=== PATIENT | female | born 1980 | race Caucasian/White ===

== ENCOUNTER 2017-03-15 19:02 | Emergency (ER) | payer SELFPAY ==
[~2017-03-15] VITALS: Ht 162.6 cm; Wt 49.9 kg
[~2017-03-15 19:02] MED LIST: ACET-704 PO; PRED-220 PO; [UNRECOGNIZED DRUG - OTHER]
[2017-03-15 19:12] VITALS: BP 130/82
--- NOTE | 2017-03-15 19:28 | PHYS DOC ---
General Chief Complaint: HAND PROBLEM Stated Complaint: RT HAND SWOLLEN X 2 DAYS Time Seen by MD: 19:23 Source: patient Problems: History of Present Illness Initial Comments Patient here for right hand swelling. Patient states that since yesterday, she noted some swelling of the right hand, mostly over the palmar aspect of the index finger MCP joint area. There is no history of injury or trauma to the area. She's not had any insect bite. She's had increasing swelling and discomfort in the hand focused on that area, and today really can't extend her if right index finger without significant discomfort. She has no numbness or tingling the digit. As noted, there is no history of injury or trauma. She noted no red streaks going up the arm. She has no fever chills, URI symptoms, cough, nausea vomiting, or other systemic symptoms noted. Other than present for care today and take some [id number] pain medicine there's been nothing done for this at home. She notes that he can motion of the right index finger make the pain worse. Patient's past medical history is otherwise unremarkable. She smokes a half-pack of cigarettes daily. She is nonuser of ethanol. Allergies: Coded Allergies: amoxicillin (Verified Allergy, Severe, Hives, 08/24/15) Uncoded Allergies: BEER (Allergy, Severe, N/V, 08/24/15) STATES "IT IS THE HOPS IN THE BEER THAT MAKES ME SICK." Past Medical History Medical History: no pertinent history Surgical History: noncontributory Social History Smoker: less than 1 pack/day Alcohol: none Review of Systems Constitutional: no symptoms reported EENTM: no symptoms reported Respiratory: no symptoms reported Cardiovascular: no symptoms reported Gastrointestinal: no symptoms reported Genitourinary: no symptoms reported Musculoskeletal: see HPI Skin: no symptoms reported All Other Systems: Reviewed and Negative Physical Exam General Appearance: WD/WN, no apparent distress Extremities: swelling, other Neurologic/Psychiatric: no motor/sensory deficits, alert, normal mood/affect, oriented x 3 Skin: warm/dry Comments Generally this a well-developed well-nourished white female in no acute distress. Vitals are as noted. Pertinent findings on physical exam shows the patient have some mild erythema and edema with tenderness over the volar aspect of the hand, mostly focused in the level of the second MCP joint. She actually holds the right index finger in flexion. She has pain on passive extension of the digit while she can actively extend and flex the digit at all sites, she does have significant pain when she does so. There is no distinct red streaks going up the palmar aspect. There is no signs of trauma. There is a sense of some induration over the MCP joint as well. There is no signs of abscess or fluctuance. There is minimal erythema and tenderness over the third MCP joint as well, significantly less than a second. The third fourth and fifth digits all move well and spontaneously without pain or discomfort, and I held in normal anatomic position. The thumb is clear. Patient is awake alert oriented and cooperative. Remainder of physical exam is clinically unremarkable. Orders, Labs, Meds Old charts no prior ER visits for pharyngitis and dysphagia. X-rays of the right hand show no acute fracture dislocation. There is some unspecified soft tissue densities anterior to the MCP joint of the index finger consistent with the patient side of swelling and pain per the emergency physician. 2300 Patient resting comfortably in the ED. Discussed with the patient early in the ER course the uncertain cause of the swelling. There is no history of injury or trauma, no history of insect bite, but the fact that she keeps it flexed and has pain on passive extension is concerning for possible early tendon space infection. The focal swelling and tenderness is also possibly suggestive of very early abscess, though there is no distinct fluctuance at this time. Discussed with the patient that the safest course of action would be going to get her started on some IV antibiotics now, and arrange urgent outpatient hand follow-up. She voices understanding and was agreeable to same. I discussed the case with Dr. Simmons of orthopedics. He was able actually review the x-ray and the patient's information. He would be happy to see the patient in the office at 9:00 tomorrow. He suggested we go ahead and start the patient on some Levaquin as an antibiotic choice, she is allergic to penicillin and cannot have Unasyn. Patient subsequent received a dose of IV anabolic here in the emergency department as well as some appropriate medication for pain. I discussed with her the need for follow-up and see orthopedics tomorrow morning. She was initially concerned that she cannot get down to [place], where his offices next [facility], but I been made aware that she has a ride trying to take her home tonight so she presumably she can get some transport tomorrow. We'll advise on additional home care including rest, elevation, and warm compresses to the hand. We'll also give her splint for comfort. She voices understanding need to follow-up with orthopedics tomorrow or return immediately to the ER sooner as needed if worsen anyway for increasing redness, increasing pain or swelling, red streaks going up the hand, or other complaints. I am very concerned about the possibility of a tendon sheath infection versus a small localized abscess, and I'm hopeful that she'll follow-up as we arranged on her behalf. I do feel follow-up is urgent, but I don 't think there is any new intervention to be accomplished by orthopedic consult this evening. The patient appears stable, somewhat anxious over her condition but in no acute discomfort distress, and okay for discharge home at this time. CALEB HUFF MD Mar 15, 2017 19:28
--- NOTE | 2017-03-16 08:13 | RAD ---
Right hand, 3 views, 03/15/2017: History: Hand pain and swelling No fracture or dislocation is identified. There is a small nonspecific radiopacity/calcification in the soft tissues adjacent to the second MCP joint. No bone erosions are seen. IMPRESSION: No acute bony abnormality is detected.
== END 2017-03-15 23:15 | disposition home or self-care (01) ==
LOC: ER 19:02
DX: R22.31 Localized swelling, mass and lump, right upper limb (principal); F17.200 Nicotine dependence, unspecified, uncomplicated; Z88.1 Allergy status to other antibiotic agents
CPT/HCPCS: 73130; 96365; 99284; J1956

== ENCOUNTER 2021-06-27 12:19 | Emergency (ER) | payer BC ==
[~2021-06-27] VITALS: Ht 162.6 cm; Wt 58.3 kg
[2021-06-27] MEDS ORDERED: diphenhydrAMINE HCL 25 MG CAPSULE PO ONE (13:30)
[2021-06-27] MEDS ORDERED: ONDANSETRON ODT 4 MG TAB.RAPDIS PO ONE (13:30)
[2021-06-27] MEDS ORDERED: KETOROLAC 15 MG/ML VIAL. IM ONE (13:30)
[2021-06-27] MEDS ORDERED: ONDANSETRON ODT 4 MG TAB.RAPDIS ONE (13:42)
[2021-06-27] MEDS ORDERED: ONDA4TAB7 PO (13:47)
--- NOTE | 2021-06-27 13:48 | PHYS DOC ---
Past History Past Medical History: No Pertinent History Past Surgical History: Tubal ligation, Other Alcohol Use: None Drug Use: None General Adult EDM: Chief Complaint: HEADACHE HPI: HPI: Patient is a 40-year-old female presents with headache, ingestion, nausea and vomiting, chills. Patient states has been taking ibuprofen and Tylenol. Denies cough, shortness of breath. Patient states she still able to keep down liquids. Patient states "I was exposed to 2 people last week that had tested positive for Covid" denies medical history. Review of Systems: Review of Systems: Constitutional: Denies fever or chills Eyes: Denies change in visual acuity HENT: Reports nasal congestion Respiratory: Denies cough or shortness of breath Cardiovascular: Denies chest pain or edema GI: Denies abdominal pain. Reports nausea, vomiting : Denies dysuria Musculoskeletal: Denies back pain or joint pain Integument: Denies rash Neurologic: Denies headache, focal weakness or sensory changes Endocrine: Denies polyuria or polydipsia Lymphatic: Denies swollen glands Psychiatric: Denies depression or anxiety Current Medications: Current Meds: Current Medications Medications (Trade) Dose Ordered Sig/Sarah Start Time Stop Time Status Last Admin Dose Admin Diphenhydramine HCl (Benadryl) 25 mg 1X ONCE 06/27/21 13:30 06/27/21 13:31 Ketorolac Tromethamine (Toradol 15mg Vial) 15 mg 1X ONCE 06/27/21 13:30 06/27/21 13:31 UNV Ondansetron HCl (Zofran Odt) 4 mg 1X ONCE 06/27/21 13:30 06/27/21 13:31 UNV Allergies: Allergies: Allergies Coded Allergies Type Severity Reaction Last Updated Verified amoxicillin Allergy Severe Hives 08/24/15 Yes Uncoded Allergies Type Severity Reaction Last Updated Verified BEER Allergy Severe N/V 08/24/15 Physical Exam: PE: Constitutional: Well developed, well nourished, no acute distress, non-toxic appearance. [] HENT: Normocephalic, atraumatic, bilateral external ears normal, oropharynx moist, no oral exudates, nose normal. [] Eyes: PERRLA, EOMI, conjunctiva normal, no discharge. [] Neck: Normal range of motion, no tenderness, supple, no stridor. [] Cardiovascular:Heart rate regular rhythm, no murmur [] Lungs & Thorax: Bilateral breath sounds clear to auscultation [] Abdomen: Bowel sounds normal, soft, no tenderness, no masses, no pulsatile masses. [] Skin: Warm, dry, no erythema, no rash. [] Back: No tenderness, no CVA tenderness. [] Extremities: No tenderness, no cyanosis, no clubbing, ROM intact, no edema. [] Neurologic: Alert and oriented X 3, normal motor function, normal sensory func tion, no focal deficits noted. [] Psychologic: Affect normal, judgement normal, mood normal. [] Current Patient Data: Vital Signs: Vital Signs Date Time Temp Pulse Resp B/P (MAP) Pulse Ox O2 Delivery O2 Flow Rate FiO2 06/27/21 12:26 98.0 110 18 156/113 97 Room Air EKG: EKG: [] Radiology/Procedures: Radiology/Procedures: [] Heart Score: C/O Chest Pain: No Risk Factors: Risk Factors: DM, Current or recent (<one month) smoker, HTN, HLP, family history of CAD, obesity. Risk Scores: Score 0 - 3: 2.5% MACE over next 6 weeks - Discharge Home Score 4 - 6: 20.3% MACE over next 6 weeks - Admit for Clinical Observation Score 7 - 10: 72.7% MACE over next 6 weeks - Early Invasive Strategies Course & Med Decision Making: Course & Med Decision Making Pertinent Labs and Imaging studies reviewed. (See chart for details) [] 38-year-old female presents with headache, congestion, nausea and vomiting. Patient given Benadryl, Toradol, Zofran to treat headache. Patient tested for Covid. Patient sent home with prescription for Zofran. Directed patient to self quarantine until she gets Covid results back. Continue taking ibuprofen and Tylenol for discomfort.Patient directed to return emergency room with worsening symptoms or concerns. Patient is hemodynamically stable. Tevin Disclaimer: Tevin Disclaimer: This electronic medical record was generated, in whole or in part, using a voice recognition dictation system. Departure Departure: Impression: Primary Impression: Headache Qualified Codes: R51.9 - Headache, unspecified Additional Impression: Nausea and vomiting Qualified Codes: R11.2 - Nausea with vomiting, unspecified Disposition: 01 HOME / SELF CARE / HOMELESS Condition: STABLE Referrals: PCP,NO (PCP) Patient Instructions: Migraine Headache, [id number] Additional Instructions: You are seen in the emergency room for migraine headache and nausea and vomiting. You were also tested for Covid. Please quarantine until results are received back. Make sure you are drinking plenty of fluids. I am sending home prescription for Zofran to help with nausea. Return emergency room for worsening symptoms or concerns EMERGENCY DEPARTMENT GENERAL DISCHARGE INSTRUCTIONS Thank you for coming to [facility] (ED) today and trusting us with you care. We trust that you had a positivie experience in our Emergency Department. If you wish to speak to the department management, you may call the director at [phone]. YOUR FOLLOW UP INSTRUCTIONS ARE FOLLOWS: 1. Do you have a private Doctor? If you do not have a private doctor, please ask for a resource list of physicians or clinics that may be able to assist you with follow up care. 2. The Emergency Physician has interpreted your x-rays. The X-Ray specialist will also review them. If there is a change in the findings, you will be notified in 48 hours when at all possible. 3. A lab test or culture has been done, your results will be reviewed and you will be notified if you need a change in treatment. ADDITIONAL INSTRUCTIONS AND INFORMATION: 1. Your care today has been supervised by a physician who is specially trained in emergency care. Many problems require more than one evaluation for a complete diagnosis and treatment. We recommend that you schedule your follow up appointment as recommended to ensure complete treatment of you illness or injury. If you are unable to obtain follow up care and continue to have a problem, or if your condition worsens, we recommend that you return to the ED. 2. We are not able to safely determine your condition over the phone nor are we able to give sound medical advice over the phone. For these safety reasons, if you call for medical advice we will ask you to come to the ED for further evaluation. 3. If you have any questions regarding these discharge instructions please call the ED at [phone]. SAFETY INFORMATION: In the interest of safety, wellness, and injury prevention; we encourage you to wear your sealbelt, if you smoke; quite smoking, and we encourage family to use a p rotective helmet for bicycling and other sporting events that present an increased risk for head injury. IF YOUR SYMPTOMS WORSEN OR NEW SYMPTOMS DEVELOP, OR YOU HAVE CONCERNS ABOUT YOUR CONDITION; OR IF YOUR CONDITION WORSENS WHILE YOU ARE WAITING FOR YOUR FOLLOW UP APPOINTMENT; EITHER CONTACT YOUR PRIMARY CARE DOCTOR, THE PHYSICIAN WHOSE NAME AND NUMBER YOU WERE GIVEN, OR RETURN TO THE ED IMMEDIATELY. Scripts Ondansetron Hcl (ZOFRAN) 4 Mg Tablet 4 MG PO TID PRN PRN for NAUSEA for 10 Days, #30 TAB Prov: JUSTINA PERALES APRN 06/27/21 JUSTINA PERALES APRN Jun 27, 2021 13:48
[2021-06-27 14:16] VITALS: BP 143/93
== END 2021-06-27 14:21 | disposition home or self-care (01) ==
LOC: ER 12:19
DX: R51.9 Headache, unspecified (principal); R11.2 Nausea with vomiting, unspecified; R68.83 Chills (without fever); Z20.822 Contact with and (suspected) exposure to COVID-19; Z98.51 Tubal ligation status; Z88.1 Allergy status to other antibiotic agents
CPT/HCPCS: 96372; 99283; C9803; J1885; Q0162; Q0163; U0003